=== PATIENT | male | born 1950 | race Caucasian/White ===

== ENCOUNTER 2023-07-01 08:41 | Day surgery (SDC) | payer BC, MEDICARE, OTHER ==
[~2023-07-01 08:41] MED LIST: Lactated Ringers 1,000 ML IV SCH
[2023-07-01] MEDS ORDERED: Midazolam 1 MG/ML 2 ML SDV ONE (09:53)
[2023-07-01] MEDS ORDERED: Propofol 200 MG/20 ML SDV ONE (09:53)
[2023-07-01] MEDS ORDERED: fentaNYL 100 MCG/2 ML SDV ONE (09:53)
== END 2023-07-01 11:33 | disposition home or self-care (01) ==
LOC: VM.SDS 08:41
PROVIDERS: ATTEND Family Medicine
DX: D12.2 Benign neoplasm of ascending colon (principal); D12.0 Benign neoplasm of cecum; D12.4 Benign neoplasm of descending colon; D12.5 Benign neoplasm of sigmoid colon; D12.3 Benign neoplasm of transverse colon; K63.89 Other specified diseases of intestine; I10 Essential (primary) hypertension; E78.00 Pure hypercholesterolemia, unspecified; M10.00 Idiopathic gout, unspecified site; J43.9 Emphysema, unspecified; I47.1 Supraventricular tachycardia; R00.1 Bradycardia, unspecified; F33.40 Major depressive disorder, recurrent, in remission, unspecified; E66.9 Obesity, unspecified; F32.A Depression, unspecified; Z88.8 Allergy status to other drugs, medicaments and biological substances; Z79.82 Long term (current) use of aspirin; Z80.0 Family history of malignant neoplasm of digestive organs; Z79.899 Other long term (current) drug therapy
CPT/HCPCS: 00812; 88305; J2250; J2704; J3010